=== PATIENT | male | born 1950 | race Caucasian/White ===

== ENCOUNTER 2020-09-18 12:00 | Day surgery (SDC) | payer MEDICARE, OTHER ==
[2020-09-17 15:34] LABS: BASOPHILS # (AUTO) 0.1 X10'3 (0-0.2); BASOPHILS % (AUTO) 0.8 % (0-1); EOSINOPHILS # (AUTO) 0.2 X10'3 (0-0.9); EOSINOPHILS % (AUTO) 2.6 % (0-6); HEMATOCRIT 46.9 % (42.0-52.0); HEMOGLOBIN 15.5 g/dl (14.0-17.9); LYMPHOCYTES # (AUTO) 2.1 X10'3 (1.1-4.8); MEAN CORPUSCULAR HEMOGLOBIN 30.4 PG (27.0-31.0); MEAN CORPUSCULAR HGB CONC 33.1 g/dL (33.0-36.5); MEAN CORPUSCULAR VOLUME 91.7 FL (78-98); MEAN PLATELET VOLUME 7.3 FL (7.4-10.4); MONOCYTES # (AUTO) 0.6 X10'3 (0-0.9); MONOCYTES % (AUTO) 8.3 % (2-12); NEUTROPHILS # (AUTO) 4.1 X10'3 (1.8-7.7); NEUTROPHILS % (AUTO) 58.3 % (42-75); PLATELET COUNT 208 X10'3 (140-440); RED BLOOD COUNT 5.11 X10'6 (4.70-6.10); RED CELL DISTRIBUTION WIDTH 13.7 % (11.5-14.5); WHITE BLOOD COUNT 7.1 X10'3 (4.5-11.0)
[2020-09-17 15:44] LABS: ALBUMIN 3.6 G/DL (3.4-5.0); ANION GAP 7 (8-16); BLOOD UREA NITROGEN 17 MG/DL (7-18); BUN/CREATININE RATIO 14.2 (5.4-32.0); CALCIUM 9.3 MG/DL (8.5-10.1); CHLORIDE 108 MMOL/L (99-107); GLUCOSE 85 MG/DL (70-104); SODIUM 144 MMOL/L (135-145); TOTAL CARBON DIOXIDE 29.4 MMOL/L (24-32); eGFR 60 ML/MIN
[~2020-09-18] VITALS: Ht 195.6 cm; Wt 146.6 kg
[2020-09-18] VITALS (13 sets, daily range): BP systolic 93–129; BP diastolic 59–94
[2020-09-18] MEDS ORDERED: normal saline 1000ml 1,000 ML IV SCH (12:35)
[2020-09-18] MEDS ORDERED: morphine 10mg/ml inj. IV ONE (12:35)
[2020-09-18] MEDS ORDERED: amiodarone 150mg/dext, iso-os 100 ML IV ONE (12:35)
[2020-09-18] MEDS ORDERED: LORazepam 0.5 MG tablet PO ONE (12:35)
[2020-09-18] MEDS ORDERED: atropine 0.1mg/ml 10ml syringe IV ONE (12:35)
[2020-09-18] MEDS ORDERED: MIDAZolam 1mg/ml 10ml vial IV ONE (12:35)
[2020-09-18] MEDS ORDERED: diphenhydrAMINE 25mg capsule PO ONE (12:35)
[2020-09-18] MEDS ORDERED: LUTE1CAP4 PO (14:01)
[2020-09-18] MEDS ORDERED: OMEG-79 PO (14:01)
[2020-09-18] MEDS ORDERED: APIX5TAB3 PO (14:01)
[2020-09-18] MEDS ORDERED: IBUP-1985 PO (14:01)
[2020-09-18] MEDS ORDERED: VITA-268 PO (14:01)
[2020-09-18] MEDS ORDERED: ASCO500C12 PO (14:01)
[2020-09-18] MEDS ORDERED: CHOL100040 PO (14:01)
[2020-09-18] MEDS ORDERED: SOTA120T PO (14:01)
[2020-09-18] MEDS ORDERED: AMLO5TAB PO (14:01)
== END 2020-09-18 16:15 | disposition home or self-care (01) ==
LOC: SSTAY O 12:00
PROVIDERS: ATTEND Internal Medicine Cardiovascular Disease
DX: I48.0 Paroxysmal atrial fibrillation (principal); I10 Essential (primary) hypertension; E78.5 Hyperlipidemia, unspecified; G47.30 Sleep apnea, unspecified; E66.3 Overweight; Z68.36 Body mass index [BMI] 36.0-36.9, adult; M19.90 Unspecified osteoarthritis, unspecified site; Z79.899 Other long term (current) drug therapy; Z79.82 Long term (current) use of aspirin; Z98.890 Other specified postprocedural states; Z72.89 Other problems related to lifestyle; Z96.653 Presence of artificial knee joint, bilateral; Z80.9 Family history of malignant neoplasm, unspecified
CPT/HCPCS: 36415; 80048; 85025; 85610; 92960; 93005; 94760; 94799; J2250; J2270; J7030

== ENCOUNTER 2024-12-21 14:19 | Day surgery (SDC) | payer MEDICARE, OTHER ==
[2024-12-20 12:21] LABS: MEAN PLATELET VOLUME 7.7 FL (7.4-10.4); RED CELL DISTRIBUTION WIDTH 14.0 % (11.5-14.5)
[2024-12-20 12:30] LABS: CREATININE 1.29 MG/DL (0.60-1.10); TOTAL CARBON DIOXIDE 26.6 MMOL/L (24-32); eGFR 55 ML/MIN
[2024-12-20 12:33] LABS: INR 1.1 INR
[~2024-12-21] VITALS: Ht 198.1 cm; Wt 142.0 kg
[~2024-12-21 14:19] MED LIST: AMLO5TAB PO; APIX5TAB3 PO; ASCO500C12 PO; CHOL100040 PO; IBUP-1985 PO; LUTE1CAP4 PO; OMEG-79 PO; SOTA120T PO; VITA-268 PO
--- NOTE | 2024-12-21 14:39 | ELECTROCARDIOGRAPH REPORT ---
[facility] Test Date: 2024-12-21 Test Time: 14:37:08 Pat Name: WONG DUVALL Department: [facility] Patient ID: [facility]-[id number] Room: Gender: M Wine Specialist: [id number] : 1950 Requested By: LESLIE MOSLEY Order Number: [id number] Reading MD: Dr. STEPHEN Mosley Measurements Intervals [place] Rate: 63 P: 0 ME: 0 QRS: -1 QRSD: 105 T: 61 QT: 423 QTc: 434 Interpretive Statements Atrial fibrillation Electronically Signed On 12-22-2024 17:31:[address] STEPHEN Mosley Please click the below link to view image of tracing.
[2024-12-21] MEDS ORDERED: FLEC100T PO (14:44)
[2024-12-21] MEDS ORDERED: morphine 10mg/ml inj. IV ONE (14:45)
[2024-12-21] MEDS ORDERED: atropine 0.1mg/ml 10ml syringe IV ONE (14:45)
[2024-12-21] MEDS ORDERED: amiodarone 150mg/dext, iso-os 100 ML IV ONE (14:45)
[2024-12-21] MEDS ORDERED: LOSA25TA41 PO (14:45)
[2024-12-21] MEDS ORDERED: normal saline 1000ml 1,000 ML IV SCH (14:45)
[2024-12-21] MEDS ORDERED: ROSU10TA72 PO (14:45)
[2024-12-21] MEDS ORDERED: MIDAZolam 1mg/ml 10ml vial IV ONE (14:45)
[2024-12-21] MEDS ORDERED: METO25TA6 PO (14:46)
[2024-12-21] MEDS ORDERED: LEVO50TA8 PO (14:46)
[2024-12-21] MEDS ORDERED: amiodarone 50MG/ML inj IV ONE (15:05)
[2024-12-21] MEDS ORDERED: atropine 0.1mg/ml 10ml syringe ONE (15:05)
[2024-12-21] MEDS ORDERED: midazolam 1 mg/ML 2ml injection ONE ×2 (15:05→16:21)
[2024-12-21] MEDS ORDERED: fentaNYL/PF 50MCG/1 ML 2ML syringe ONE ×2 (15:05→16:21)
[2024-12-21 16:41] VITALS: BP 143/94; PULSE 50; RESP 15; O2SAT 93
[2024-12-21 16:46] VITALS: BP 139/85; PULSE 49; RESP 15; O2SAT 93
[2024-12-21 17:00] VITALS: BP 124/76; PULSE 45; RESP 15; O2SAT 93
[2024-12-21 17:15] VITALS: BP 112/76; PULSE 47; RESP 16; O2SAT 93
--- NOTE | 2024-12-21 17:54 | ELECTROCARDIOGRAPH REPORT ---
[facility] Test Date: 2024-12-21 Test Time: 16:39:25 Pat Name: WONG DUVALL Department: [facility] 1ST FLOOR Room: Gender: M Deck Specialist: GISELLA : 1950 Requested By: LESLIE MOSLEY Order Number: [id number] Reading MD: Dr. STEPHEN Mosley Measurements Intervals [place] Rate: 49 P: 38 NH: 212 QRS: 37 QRSD: 119 T: 66 QT: 443 QTc: 400 Interpretive Statements Sinus bradycardia Nonspecific intraventricular conduction delay Electronically Signed On 12-22-2024 17:31:[address] STEPHEN Mosley Please click the below link to view image of tracing.
--- NOTE | 2024-12-22 10:54 | CARDIOLOGY REPORT ---
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 His history of PAF dates back to 2009. He has a family history of AFib with his mother and 2 of his older sisters have AFib. One of them had AFib ablation. Initially, the patient back in 2009, he was treated with Multaq and after discontinuing he had recurrence of AFib. In 2009 subsequently he gradually discontinued the medication because he was doing well in normal sinus rhythm. He had recurrence of PAF on 08/21/2020 and then the patient was started on sotalol and Eliquis and then he underwent successful electric cardioversion on 09/18/2020. After that, he did well. He was then back on sotalol because he had some recurrent PAF episodes. Then the patient was seen in the office on 12/07/2024. He was in AFib. At that time, ablation were discussed. In the meantime, the patient was started on flecainide 50 mg p.o. b.i.d. and then Eliquis was continued and he went ahead and had a consultation with Dr. Ralph. He was recommended weight reduction, use of GLP-1 receptor agonist and attempting cardioversion. Hence, after discussing risks, benefits, alternatives, he has decided to proceed with electric cardioversion. Risks, benefits, and alternative options were discussed. Informed consent was obtained. DESCRIPTION OF PROCEDURE: Anterior and posterior patches used. Using 200 joules biphasic electrical energy converted to normal sinus rhythm and remained in normal sinus rhythm. Summary: 74-year-old male with paroxysmal atrial fibrillation successfully cardioverted to normal sinus rhythm. Recommend diet weight loss and exercise program. Continue GLP 1 agonist. RECOMMENDATIONS: * Continue flecainide 100 mg p.o. b.i.d. * Eliquis 5 mg p.o. b.i.d. * Metoprolol 25 mg twice a day. * The patient will have a followup with Dr. Ralph as well. STEPHEN Rodriguez MD TID: [id number] RECEIPT: [id number] MODE/AALIYAH/SUNSHINE cc: Abe Ralph MD, Sal Jennings MD MTDD
== END 2024-12-21 17:30 | disposition home or self-care (01) ==
LOC: SSTAY O 14:19
PROVIDERS: ATTEND Internal Medicine Cardiovascular Disease
DX: I48.0 Paroxysmal atrial fibrillation (principal); I10 Essential (primary) hypertension; E78.5 Hyperlipidemia, unspecified; E66.3 Overweight; G47.30 Sleep apnea, unspecified; M19.90 Unspecified osteoarthritis, unspecified site; Z79.01 Long term (current) use of anticoagulants; Z79.1 Long term (current) use of non-steroidal anti-inflammatories (NSAID); Z79.890 Hormone replacement therapy; Z79.899 Other long term (current) drug therapy; Z96.651 Presence of right artificial knee joint; Z98.890 Other specified postprocedural states; Z68.36 Body mass index [BMI] 36.0-36.9, adult
CPT/HCPCS: 36415; 80048; 85025; 85610; 92960; 93005; J1200; J2250; J3010; J7030; Z7610; 99152; J0282; J0461